=== PATIENT | male | born 1985 | race Caucasian/White ===

== ENCOUNTER 2022-11-04 08:58 | Inpatient (IN) | payer OTHER ==
[2022-11-04 10:18] VITALS: BMI 25.1
[2022-11-04] MEDS ORDERED: DICYCLOMINE HCL 10 MG CAPSULE PO PRN (10:23)
[2022-11-04] MEDS ORDERED: METHOCARBAMOL 500 MG TABLET PO PRN (10:23)
[2022-11-04] MEDS ORDERED: IBUPROFEN 600 MG TABLET (FP) PO PRN (10:23)
[2022-11-04] MEDS ORDERED: LOPERAMIDE HCL 2 MG CAPSULE PO PRN (10:23)
[2022-11-04] MEDS ORDERED: MAGNESIUM HYDROX 2400MG/30ML ORAL SUSPENSION 30 ML CUP PO PRN (10:23)
[2022-11-04] MEDS ORDERED: MAG HYDROX/AL HYDROX/SIMETH 30 ML UNIT-DOSE CUP PO PRN (10:23)
[2022-11-04] MEDS ORDERED: NICOTINE POLACRILEX 2 MG GUM BUC PRN (10:23)
[2022-11-04] MEDS ORDERED: ONDANSETRON *ODT* 4 MG TABLET SL PRN (10:23)
[2022-11-04] MEDS ORDERED: BENZOCAINE/MENTHOL (CHLORASEPTIC ) LOZENGE MM PRN (10:23)
[2022-11-04] MEDS ORDERED: ACETAMINOPHEN 325 MG TABLET (FP) PO PRN ×2 (10:23)
[2022-11-04] MEDS ORDERED: NALOXONE HCL (KLOXXADO) 8 MG SPRAY NS PRN (10:23)
[2022-11-04] MEDS ORDERED: NICOTINE 10 MG CARTRIDGE (INHALER) IH PRN (10:23)
[2022-11-04] MEDS ORDERED: IBUPROFEN 400 MG TABLET (FP) PO PRN (10:23)
[2022-11-04] MEDS ORDERED: BISMUTH SUBSALICYLATE 524 MG/30 ML PO PRN (10:23)
[2022-11-04] MEDS ORDERED: POLYETHYLENE GLYCOL (HEALTHYLAX) 3350 17 GM PACKET PO PRN (10:23)
[2022-11-04] MEDS ORDERED: ALBUTEROL SO4 HFA INHALER IH PRN (10:44)
[2022-11-04] MEDS ORDERED: methaDONE HCL 10 MG TABLET (FOR DETOX USE ONLY) ONE (10:58)
[2022-11-04] MEDS ORDERED: methaDONE HCL 10 MG TABLET (FOR DETOX USE ONLY) PO ONE (11:00)
[2022-11-04] MEDS: NICOTINE 7 MG/24 HOURS TOPICAL PATCH TD SCH (11:50)
[2022-11-04 16:36] LABS: HEMATOCRIT 41.4 % (35.4-49); MCH 31.6 pg (25.7-33.7); MCHC 33.7 g/dl (32.0-35.9); MEAN CELL VOLUME 93.8 fl (80-96); MEAN PLT VOLUME 8.2 fl (7.5-11.1); PLATELET COUNT 284 10^3/uL (134-434); RBC 4.42 M/mm3 (4.00-5.60); RDW 13.4 % (11.9-15.9); WHITE BLOOD COUNT 8.1 K/mm3 (4.0-10.0)
[2022-11-04 16:50] LABS: ALBUMIN 3.4 g/dl (3.4-5.0); BLOOD UREA NITROGEN 14.1 mg/dL (7-18); CALCIUM 8.9 mg/dL (8.5-10.1)
[2022-11-04 16:53] LABS: CREATININE 0.9 mg/dL (0.55-1.3)
[2022-11-04 16:55] LABS: TOT PROT 6.9 g/dl (6.4-8.2)
[2022-11-04 17:03] LABS: BILIRUBIN,TOTAL 0.3 mg/dL (0.2-1)
[2022-11-04] MEDS: MELATONIN 5 MG TABLETS PO SCH (22:03)
[2022-11-04] MEDS: hydrOXYzine PAMOATE 25 MG CAPSULE (FP) PO PRN (22:04)
[2022-11-04] MEDS: THIAMINE HCL 100 MG TABLET (FP) PO SCH (22:04)
[2022-11-05] MEDS: PRENATAL VITAMINS W/ FOLIC ACID TABLET (FP) PO SCH (09:57)
[2022-11-05] MEDS: hydrOXYzine PAMOATE 25 MG CAPSULE (FP) PO PRN (09:57)
[2022-11-05] MEDS: NICOTINE 7 MG/24 HOURS TOPICAL PATCH TD SCH (09:58)
[2022-11-05] MEDS: THIAMINE HCL 100 MG TABLET (FP) PO SCH (22:45)
[2022-11-05] MEDS: MELATONIN 5 MG TABLETS PO SCH (22:45)
[2022-11-06] MEDS ORDERED: methaDONE HCL 10 MG TABLET (FOR DETOX USE ONLY) PO ONE (10:00)
[2022-11-06] MEDS: PRENATAL VITAMINS W/ FOLIC ACID TABLET (FP) PO SCH (10:55)
[2022-11-06] MEDS: NICOTINE 7 MG/24 HOURS TOPICAL PATCH TD SCH (11:10)
[2022-11-06] MEDS: hydrOXYzine PAMOATE 25 MG CAPSULE (FP) PO PRN (22:36)
[2022-11-06] MEDS: THIAMINE HCL 100 MG TABLET (FP) PO SCH (22:36)
[2022-11-06] MEDS: MELATONIN 5 MG TABLETS PO SCH (22:37)
[2022-11-07 07:26] VITALS: RESP 18
[2022-11-07 09:33] VITALS: BP 127/80; PULSE 94; TEMP 97.5
[2022-11-07] MEDS: PRENATAL VITAMINS W/ FOLIC ACID TABLET (FP) PO SCH (10:08)
[2022-11-07] MEDS: NICOTINE 7 MG/24 HOURS TOPICAL PATCH TD SCH (10:08)
[2022-11-08] MEDS ORDERED: methaDONE HCL 10 MG TABLET (FOR DETOX USE ONLY) PO ONE (10:00)
== END 2022-11-07 09:20 | disposition left against medical advice (07) | DRG 770 ==
LOC: YASAS 08:58 → Y6N 11:04
PROVIDERS: ADMIT Allergy & Immunology; ATTEND Surgery
PROC: HZ2ZZZZ Detoxification Services for Substance Abuse Treatment (ICD-10-PCS; principal; 2022-11-04)
DX: F11.23 Opioid dependence with withdrawal (principal); F14.20 Cocaine dependence, uncomplicated; F12.20 Cannabis dependence, uncomplicated; F17.210 Nicotine dependence, cigarettes, uncomplicated; F19.282 Other psychoactive substance dependence with psychoactive substance-induced sleep disorder; F19.280 Other psychoactive substance dependence with psychoactive substance-induced anxiety disorder; J45.20 Mild intermittent asthma, uncomplicated; K21.9 Gastro-esophageal reflux disease without esophagitis; Z28.310 Unvaccinated for COVID-19; Z56.0 Unemployment, unspecified
CPT/HCPCS: 36415; 80053; 85027; 86780; 87811; 93005; 93010; C9803-CS; U0003; U0005